=== PATIENT | male | born 1955 | race Caucasian/White ===

== ENCOUNTER 2017-08-22 15:49 | Emergency (ER) | payer OTHER ==
[~2017-08-22] VITALS: Ht 172.7 cm; Wt 80.1 kg
[~2017-08-22 15:49] MED LIST: "\\\"CHOLESTEROL MED\\\""; ANTIDEPRESSANT; ANTIHYPERTENSIVE; FLOMAX0.4 MG PO; MOTRIN600 MG PO; MOTRIN800 MG PO; NORCO 7.5/321 TABLET PO; PHENERGAN25 MG PR; PROMETHAZINE HC25 M1 PO
[2017-08-22] MEDS ORDERED: FIORICET 50-301 EAC1 PO (17:30)
[2017-08-22 18:29] VITALS: BP 154/82
== END 2017-08-22 18:30 | disposition home or self-care (01) ==
LOC: EME 15:49
DX: R51 Headache (principal); Z86.79 Personal history of other diseases of the circulatory system; E78.5 Hyperlipidemia, unspecified; I10 Essential (primary) hypertension; G89.29 Other chronic pain; F32.9 Major depressive disorder, single episode, unspecified; Z87.891 Personal history of nicotine dependence
CPT/HCPCS: 70450; 99281; 99284